=== PATIENT | female | born 1975 | race Caucasian/White ===

== ENCOUNTER 2019-02-26 01:04 | Emergency (ER) | payer MEDICAID ==
[~2019-02-26] VITALS: Ht 162.6 cm; Wt 113.4 kg
[2019-02-26 01:10] VITALS: Ht 162.6 cm; Wt 113.4 kg
[2019-02-26] MEDS ORDERED: SYNTHROID75 MCG (01:11)
[2019-02-26] MEDS ORDERED: NAPROSYN500 MG PO (02:06)
[2019-02-26] MEDS ORDERED: ULTRAM50 MG PO (02:06)
[2019-02-26 02:27] VITALS: BP 115/70
== END 2019-02-26 02:27 | disposition home or self-care (01) ==
LOC: D.ER 01:04
DX: M25.561 Pain in right knee (principal)